=== PATIENT | female | born 2000 | race Caucasian/White ===

== ENCOUNTER 2024-03-04 10:53 | Outpatient (CLI) | payer BC, SELFPAY ==
--- NOTE | 2024-03-04 11:15 | CRLHL7_ITS ---
For Patients: As a result of the Century Cures Act, medical imaging exams and procedure reports are released immediately into your electronic medical record. You may view this report before your referring provider. If you have questions, please contact your health care provider. CLINICAL HISTORY: : Right breast lump. COMPARISON: None TECHNIQUE: Real-time ultrasound imaging of right breast with imaging documentation. FINDINGS: Targeted sonogram right breast 12 o`clock 5 cm from the nipple performed in the area of concern. Dense fibroglandular tissue is present. No suspicious mass or abscess. No fluid collection. No fibrocystic change. IMPRESSION: Normal dense tissue right breast 12 o`clock 5 cm from the nipple. RECOMMENDATIONS: Clinical follow-up. A lay language report of this examination will be provided to the patient. BI-RADS Category 2. Benign. Dictated by Yahir Medrano MD @ 03/04/2024 11:54:34 AM (Electronically Signed)
== END 2024-03-04 10:54 | disposition home or self-care (01) ==
LOC: US 10:58
PROVIDERS: Visit Provider Physician Assistant
DX: N63.15 Unspecified lump in the right breast, overlapping quadrants (principal)
CPT/HCPCS: 76642